=== PATIENT | male | born 1965 | race Caucasian/White ===

== ENCOUNTER → 2017-08-27 | Outpatient (CLI) | payer BC | END | disposition home or self-care (01) | LOC: MRI 14:35 | DX: M51.36 Other intervertebral disc degeneration, lumbar region (principal); M48.061 Spinal stenosis, lumbar region without neurogenic claudication | CPT/HCPCS: 72148 ==

== ENCOUNTER → 2017-10-03 | Day surgery (SDC) | payer BC ==
[~2017-10-03] MED LIST: CYAN10005 PO; FOLI1TAB16 PO; IV NORMAL SALINE 1000ML BAG 1,000 ML IV ONE; IV RINGERS,LACTATED 1000ML 1,000 ML IV SCH; LIDOCAINE 1% PF 2 ML VIAL. ID PRN; LIDOCAINE 2% PF Vial for OR 5 ML VIAL. ONE; MAGN400C PO; MIRT15TA3 PO; MORPHINE SULFATE 2 MG/ML VIAL. IV PRN; MULT1TAB52 PO; OMEG1CAP6 PO; ONDANSETRON PF 4 MG/2 ML VIAL. IV PRN; PREG50CA PO; PROCHLORPERAZINE 10 MG/2 ML VIAL. IV PRN; PROPOFOL 40 ML IV ONE; fentaNYL PF VIAL 100 MCG/2 ML VIAL IV PRN
[2017-10-03 08:10] VITALS: BP 137/74
--- NOTE | 2017-10-05 12:14 | PATHOLOGY ---
[facility] Accession Number: [id number] . 01 Material submitted: . PART A: DUODENAL BIOPSY PART B: BIOPSY DESCENDING COLON POLYP PART C: RANDOM COLON BIOPSIES . 01 Clinical history: . Pre-OP DX: Weight loss, diarrhea Post-OP DX: Duodenitis, gastritis . 02 Diagnosis: A. Small bowel, duodenum, biopsy: - Duodenal mucosa with no significant histopathologic diagnosis. . B. Colon, descending, biopsy: - Adenomatous polyp. . C. Colon, random biopsies: - Multiple fragments of colonic mucosa with no significant histopathologic diagnosis. (SKM:nathanael; 10/04/2017) QMS/10/04/2017 . 02 Electronically signed: . Mohinder Bang MD, Pathologist NPI- [id number] . 01 Gross description: . A. Received in formalin labeled "Germain Norton, duodenal BX," are multiple segments of babb soft tissue measuring 2.0 x 0.3 x 0.1 cm in aggregate dimensions. The specimen is filtered and submitted entirely in cassette A1. . B. Received in formalin labeled "Germain Norton, BX, descending colon polyp," is a single segment of babb soft tissue measuring 0.4 cm in maximum dimension. The specimen is entirely submitted in cassette B1. . C. Received in formalin labeled "Germain Norton, random colon biopsies," are multiple segments of babb soft tissue measuring 2.2 x 0.5 x 0.1 cm in aggregate dimensions. The specimen is filtered and submitted entirely in cassette C1. (TSD; 10/03/2017) TOB/TOB . 02 Pathologist provided ICD-10: D12.4, R63.4, R19.7 . 02 CPT . 349384, 873282, 297180 Performed at: 01 [facility] [address], [place], [place] [id number] MD Mo Mac MD Phone: [phone] Performed at: 02 [facility] [address] [place], [place] [id number] MD Raffi Jaramillo MD Phone: [phone]
== END | disposition home or self-care (01) ==
LOC: ENDOS 05:55
PROVIDERS: ATTEND Internal Medicine Gastroenterology
DX: D12.4 Benign neoplasm of descending colon (principal); K64.0 First degree hemorrhoids; K29.50 Unspecified chronic gastritis without bleeding; K31.89 Other diseases of stomach and duodenum; E11.9 Type 2 diabetes mellitus without complications; K21.9 Gastro-esophageal reflux disease without esophagitis; I10 Essential (primary) hypertension; Z83.3 Family history of diabetes mellitus; Z82.49 Family history of ischemic heart disease and other diseases of the circulatory system; Z72.89 Other problems related to lifestyle; Z79.899 Other long term (current) drug therapy; Z98.890 Other specified postprocedural states; Z96.60 Presence of unspecified orthopedic joint implant; M48.061 Spinal stenosis, lumbar region without neurogenic claudication; M51.36 Other intervertebral disc degeneration, lumbar region; Z79.84 Long term (current) use of oral hypoglycemic drugs
CPT/HCPCS: 43239; 45380; 88305; J2001; J2704; 45385

== ENCOUNTER 2018-01-03 08:34 | Outpatient (CLI) | payer BC ==
[2018-01-03] VITALS (12 sets, daily range): BP systolic 114–127; BP diastolic 67–78
[~2018-01-03] VITALS: Ht 175.3 cm; Wt 121.1 kg
[~2018-01-03 08:34] MED LIST changes: +ACET500T68 PO; -IV NORMAL SALINE 1000ML BAG 1,000 ML IV ONE; -IV RINGERS,LACTATED 1000ML 1,000 ML IV SCH; -LIDOCAINE 1% PF 2 ML VIAL. ID PRN; -LIDOCAINE 2% PF Vial for OR 5 ML VIAL. ONE; +LORA10TA68 PO; -MORPHINE SULFATE 2 MG/ML VIAL. IV PRN; -ONDANSETRON PF 4 MG/2 ML VIAL. IV PRN; +PRED20TA PO; -PROCHLORPERAZINE 10 MG/2 ML VIAL. IV PRN; -PROPOFOL 40 ML IV ONE; +RANI150T2 PO; +THIA100T22 PO; -fentaNYL PF VIAL 100 MCG/2 ML VIAL IV PRN
[2018-01-03 08:59] LABS: BASO # 0.1 x10^3/uL (0.0-0.2); BASO % 1 % (0-3); EOS # 3.6 x10^3/uL (0.0-0.7); EOS % 31 % (0-3); HEMATOCRIT 29.7 % (39.0-53.0); HEMOGLOBIN 10.2 g/dL (13.0-17.5); LYMPH # 1.3 x10^3/uL (1.0-4.8); LYMPH % 11 % (24-48); MEAN CORPUSCULAR HEMOGLOBIN 38 pg (25-35); MEAN CORPUSCULAR HGB CONC 34 g/dL (31-37); MEAN CORPUSCULAR VOLUME 110 fL (79-100); MONO # 0.6 x10^3/uL (0.0-1.1); MONO % 5 % (0-9); NEUT # 6.2 x10^3uL (1.8-7.7); NEUT % 53 % (31-73); PLATELET COUNT 190 x10^3/uL (140-400); RED CELL DISTRIBUTION WIDTH 14.4 % (11.5-14.5); WHITE BLOOD COUNT 11.7 x10^3/uL (4.0-11.0)
[2018-01-03 09:08] LABS: PROTHROMBIN TIME PATIENT 20.1 SEC (11.7-14.0)
[2018-01-03] MEDS ORDERED: LIDOCAINE WITH 8.4% SOD BICARB 3 ML DISP.SYRIN. ONE (09:29)
[2018-01-03] MEDS ORDERED: IOHEXOL 240 MG/ML 50ML VIAL. ONE (09:30)
[2018-01-03 09:34] LABS: % BANDS 4 % (0-9); % BASOS 2 % (0-3); % EOS 29 % (0-5); % LYMPHS 6 % (24-48); % MONOS 2 % (0-10); % SEGS 57 % (35-66); PLT ESTIMATE ADEQUATE (ADEQUATE)
[2018-01-03] MEDS ORDERED: ALBUMIN HUMAN 25% 100 ML IV ONE ×3 (09:51→10:05)
[2018-01-03] MEDS ORDERED: ALBUMIN HUMAN 25% 50 ML IV ONE (11:00)
--- NOTE | 2018-01-03 11:38 | RAD ---
Ultrasound-guided paracentesis 01/03/2018 11:34 AM Procedure: The risks and benefits of the procedure were discussed the patient. Informed consent was obtained. A timeout procedure was performed. Sonographic evaluation of the abdomen was performed demonstrating ascites . The right lower quadrant was prepped and draped using maximum sterile barrier technique. 1% lidocaine without epinephrine was administered for local anesthesia. Real-time ultrasonographic guidance was used in passing a 5 [place] Yueh catheter into the fluid collection. 7.5 L of serous ascites was removed. The catheter was removed and pressure held to achieve hemostasis. A sterile dressing was applied. Impression: Successful ultrasound-guided paracentesis
== END 2018-01-03 10:52 | disposition home or self-care (01) ==
LOC: INTRAD 08:34
PROVIDERS: ATTEND Internal Medicine Gastroenterology
DX: K74.60 Unspecified cirrhosis of liver (principal); Z79.899 Other long term (current) drug therapy; Z79.01 Long term (current) use of anticoagulants
CPT/HCPCS: 36415; 49083; 85025; 85610; 85730; P9046; 85007

== ENCOUNTER 2018-01-17 08:29 | Outpatient (CLI) | payer BC ==
[2018-01-17] VITALS (8 sets, daily range): BP systolic 99–120; BP diastolic 60–77
[~2018-01-17] VITALS: Ht 175.3 cm; Wt 108.4 kg
[2018-01-17] MEDS ORDERED: FURO20TA3 PO (08:56)
[2018-01-17 09:03] LABS: BASO # 0.1 x10^3/uL (0.0-0.2); BASO % 1 % (0-3); EOS # 0.4 x10^3/uL (0.0-0.7); EOS % 8 % (0-3); HEMATOCRIT 29.7 % (39.0-53.0); HEMOGLOBIN 10.3 g/dL (13.0-17.5); LYMPH % 22 % (24-48); MEAN CORPUSCULAR HEMOGLOBIN 37 pg (25-35); MEAN CORPUSCULAR HGB CONC 35 g/dL (31-37); MEAN CORPUSCULAR VOLUME 107 fL (79-100); MONO # 0.3 x10^3/uL (0.0-1.1); MONO % 7 % (0-9); NEUT # 2.8 x10^3uL (1.8-7.7); NEUT % 61 % (31-73); PLATELET COUNT 190 x10^3/uL (140-400); RED BLOOD COUNT 2.78 x10^6/uL (4.30-5.70); RED CELL DISTRIBUTION WIDTH 13.6 % (11.5-14.5); WHITE BLOOD COUNT 4.5 x10^3/uL (4.0-11.0)
[2018-01-17 09:10] LABS: CALCIUM 8.2 mg/dL (8.5-10.1); CREATININE 0.8 mg/dL (0.7-1.3); GFR 102.3; POTASSIUM 3.9 mmol/L (3.5-5.1)
[2018-01-17 09:12] LABS: PROTHROMBIN TIME PATIENT 17.3 SEC (11.7-14.0)
[2018-01-17 09:16] LABS: ALBUMIN 1.8 g/dL (3.4-5.0); ALBUMIN/GLOBULIN RATIO 0.4 (1.0-1.7); TOTAL BILIRUBIN 1.5 mg/dL (0.2-1.0); TOTAL PROTEIN 6.9 g/dL (6.4-8.2)
[2018-01-17] MEDS ORDERED: ESOM20CA PO (10:30)
[2018-01-17] MEDS ORDERED: ALBUMIN HUMAN 25% 100 ML IV ONE ×2 (10:38→11:00)
[2018-01-17 14:11] LABS: BF CLARITY CLEAR; BF COLOR STRAW; BF MON % 67 %; BF OTHER % 14 %; BF PMN % 19 %; BF RBC COUNT 650 /cmm; BF SOURCE ASCITES; BF WBC COUNT 65 /cmm
--- NOTE | 2018-01-17 15:11 | RAD ---
Ultrasound-guided paracentesis 01/17/2018 3:07 PM Procedure: The risks and benefits of the procedure were discussed the patient. Informed consent was obtained. A timeout procedure was performed. Sonographic evaluation of the abdomen was performed demonstrating ascites . The right lower quadrant was prepped and draped using maximum sterile barrier technique. 1% lidocaine without epinephrine was administered for local anesthesia. Real-time ultrasonographic guidance was used in passing a 5 [place] Yueh catheter into the fluid collection. 6.4 L of serous ascites was removed. The catheter was removed and pressure held to achieve hemostasis. A sterile dressing was applied. Impression: Successful ultrasound-guided paracentesis
--- NOTE | 2018-01-18 16:08 | PATHOLOGY ---
Note [facility] Accession Number: [id number] TESTS RESULT FLAG UNITS REF RANGE LAB Clinician Provided Cytology Information No. of containers..01 Other (Miscellaneous) Source: 01 ABDOMINAL FLUID DIAGNOSIS: 02 ABDOMINAL FLUID NEGATIVE FOR MALIGNANT CELLS. MESOTHELIAL CELLS ARE PRESENT. THIS INTERPRETATION INCLUDES EVALUATION OF A CELL BLOCK. Signed out by: Filemon Howard MD, Pathologist NPI- [id number] Performed by: Reagan Blackmon, Toll Mechanic ([facility]) Gross description: 01 32ML, YELLOW, CLOUDY /LCS FLAG LEGEND: L-Low Normal,H-High Normal,LL-Alert Low,HH-Alert High <-Panic Low,>-Panic High,A-Abnormal,AA-Critical Abnormal Performed at: [address] [place] [address] Mo Mac MD, 02 [facility] [address] [place] [address] Raffi Jaramillo MD, Specimen Comment: A courtesy copy of this report has been sent to Specimen Comment: [phone]. Specimen Comment: Report sent to Performed at: [address] [place] [address] [address], [place], [place] [id number] MD Mo Mac MD Phone: [phone]
== END 2018-01-17 11:50 | disposition home or self-care (01) ==
LOC: INTRAD 08:29
PROVIDERS: ATTEND Internal Medicine Gastroenterology
DX: K74.60 Unspecified cirrhosis of liver (principal)
CPT/HCPCS: 36415; 49083; 80053; 82042; 85025; 85610; 87071; 87075; 89050; A4215; C1729; C1892; P9046; 88112; 88305